=== PATIENT | female | born 1940 | race African-American/Black ===

== ENCOUNTER 2017-11-25 13:37 | Emergency (ER) | payer OTHER ==
[~2017-11-25] VITALS: Ht 162.6 cm; Wt 77.0 kg
[~2017-11-25 13:37] MED LIST: INSULIN; LIPITOR
[2017-11-25] MEDS ORDERED: ACETAMINOPHEN 325MG TABLET PO ONE (15:15)
[2017-11-25 15:39] VITALS: BP 141/61
== END 2017-11-25 15:55 | disposition home or self-care (01) ==
LOC: ER 13:46
DX: S40.011A Contusion of right shoulder, initial encounter (principal); G62.9 Polyneuropathy, unspecified; E11.9 Type 2 diabetes mellitus without complications; Z88.5 Allergy status to narcotic agent; Z88.2 Allergy status to sulfonamides; Z90.49 Acquired absence of other specified parts of digestive tract; W18.09XA Striking against other object with subsequent fall, initial encounter; Y93.89 Activity, other specified; Y92.89 Other specified places as the place of occurrence of the external cause
CPT/HCPCS: 73030; 73060; 99284